=== PATIENT | male | born 1955 | race African-American/Black ===

== ENCOUNTER 2024-11-06 12:19 | Emergency (ER) | payer MEDICARE, OTHER ==
[~2024-11-06] VITALS: Ht 170.2 cm; Wt 99.0 kg
[2024-11-06 12:26] VITALS: O2SAT 97
[2024-11-06 12:34] VITALS: BP 124/62; PULSE 93; RESP 18; TEMP 97.8; O2SAT 97
[2024-11-06 13:13] LABS: HEMATOCRIT 39.4 % (42.0-52.0); HEMOGLOBIN 12.6 g/dL (14.0-18.0); MEAN CORPUSCULAR HEMOGLOBIN 28.6 pg (28.0-32.0); MEAN CORPUSCULAR VOLUME 89.2 fL (80.0-94.0); PLATELET 319 x1000/uL (130-400); RED BLOOD CELL COUNT 4.42 mill/uL (4.7-6.1); RED CELL DISTRIBUTION WIDTH 14.6 % (11.6-14.6); WHITE BLOOD COUNT 12.2 x1000/uL (4.5-11.0)
[2024-11-06 13:20] LABS: POTASSIUM 4.4 mEq/L (3.5-5.1)
[2024-11-06 13:21] LABS: CALCIUM 9.3 mg/dL (8.7-10.4)
[2024-11-06 13:26] LABS: CREATININE 1.5 mg/dL (0.6-1.3)
[2024-11-06] MEDS ORDERED: HYDR453.3 TP (13:58)
[2024-11-06] MEDS: HYDROCORTISONE 1% CREAM 30GM TOP ONE (14:26)
[2024-11-06] MEDS: SODIUM CHLORIDE 0.9% 1,000 ML IV ONE (14:26)
== END 2024-11-06 16:56 | disposition home or self-care (01) ==
LOC: ER 12:19
DX: L30.9 Dermatitis, unspecified (principal); N17.9 Acute kidney failure, unspecified; E11.9 Type 2 diabetes mellitus without complications; J45.909 Unspecified asthma, uncomplicated
CPT/HCPCS: 99283; 96360; 80048; 82962; 85027; 36415; J7030